=== PATIENT | male | born 1955 | race Caucasian/White ===

== ENCOUNTER → 2018-02-02 | Outpatient (CLI) | payer BC ==
[~2018-02-02] MED LIST: Acidophilus La100 GM; CALCIUM CITRAT1 EAC6 PO; CHOL10002 PO; FISH1000 PO; LUPRON DEPOT11.25 M2; MAGOXI400 PO; MELATONIN10 M5 PO; PANT40 PO; TURMERIC500 M1; UBID10; Vitamin E400 UNI4; [UNRECOGNIZED DRUG - OTHER] PO
== END | disposition home or self-care (01) ==
LOC: LAB SHORT 13:31 → PLD 13:31
DX: D23.5 Other benign neoplasm of skin of trunk (principal)
CPT/HCPCS: 88305

== ENCOUNTER → 2019-07-30 | Outpatient (CLI) | payer MEDICARE, OTHER | END | disposition home or self-care (01) | LOC: LAB 19:20 → LAB SHORT 19:20 | DX: L03.011 Cellulitis of right finger (principal) | CPT/HCPCS: 87070; 87075; 87077; 87147; 87186; 87205 ==

== ENCOUNTER → 2020-10-22 | Outpatient (CLI) | payer MEDICARE, OTHER ==
[2020-10-25 13:11] LABS: M-SPIKE, % Not Observed % (Not Observed); PROTEIN,TOTAL,URINE 5.6 mg/dL (Not Estab.)
== END | disposition home or self-care (01) ==
LOC: LAB SHORT 07:00 → PLD 07:00 → LAB FUT 10-15 12:25
PROVIDERS: Internal Medicine
DX: E87.8 Other disorders of electrolyte and fluid balance, not elsewhere classified (principal)
CPT/HCPCS: 81050; 84156; 84166

== ENCOUNTER → 2021-03-18 | Outpatient (CLI) | payer MEDICARE, OTHER | END | disposition home or self-care (01) | LOC: LAB 08:56 → LAB SHORT 08:56 | DX: D48.5 Neoplasm of uncertain behavior of skin (principal) | CPT/HCPCS: 88305 ==

== ENCOUNTER 2023-07-16 03:51 | Day surgery (SDC) | payer MEDICARE, OTHER | END 2023-07-16 22:39 | disposition home or self-care (01) | LOC: WOUND 03:51 | DX: S81.812A Laceration without foreign body, left lower leg, initial encounter (principal); X58.XXXA Exposure to other specified factors, initial encounter; I10 Essential (primary) hypertension; I87.2 Venous insufficiency (chronic) (peripheral); I73.9 Peripheral vascular disease, unspecified; Z88.8 Allergy status to other drugs, medicaments and biological substances | CPT/HCPCS: A9270 ==

== ENCOUNTER 2023-07-23 05:03 | Day surgery (SDC) | payer MEDICARE, OTHER | END 2023-07-23 22:47 | disposition home or self-care (01) | LOC: WOUND 05:03 | DX: S81.812A Laceration without foreign body, left lower leg, initial encounter (principal); W22.8XXA Striking against or struck by other objects, initial encounter; C61 Malignant neoplasm of prostate | CPT/HCPCS: G0463 ==

== ENCOUNTER 2023-07-30 02:19 | Day surgery (SDC) | payer MEDICARE, OTHER | END 2023-07-30 22:50 | disposition home or self-care (01) | LOC: WOUND 02:19 | DX: S81.802A Unspecified open wound, left lower leg, initial encounter (principal); W22.8XXA Striking against or struck by other objects, initial encounter; C61 Malignant neoplasm of prostate | CPT/HCPCS: G0463 ==

== ENCOUNTER 2023-08-13 02:24 | Day surgery (SDC) | payer MEDICARE, OTHER | END 2023-08-13 22:48 | disposition home or self-care (01) | LOC: WOUND 02:24 | DX: S81.802D Unspecified open wound, left lower leg, subsequent encounter (principal); W22.8XXD Striking against or struck by other objects, subsequent encounter | CPT/HCPCS: G0463 ==

== ENCOUNTER → 2024-09-17 | Outpatient (CLI) | payer MEDICARE, OTHER ==
[2024-09-17 14:06] LABS: Adenovirus F 40/41 Not Detected (NOT DETECT); Astrovirus Not Detected (NOT DETECT); Campylobacter Sp Not Detected (NOT DETECT); Cryptosporidium Not Detected (NOT DETECT); Cyclospora Cayetanensis Not Detected (NOT DETECT); E. Coli O157 Not Detected (NOT DETECT); Entamoeba Histolytica Not Detected (NOT DETECT); Enteroaggregative E. coli-EAEC Not Detected (NOT DETECT); Enteropathogenic E. coli-EPEC Not Detected (NOT DETECT); Enterotoxigenic E. coli-ETEC Not Detected (NOT DETECT); Giardia Lamblia Not Detected (NOT DETECT); Norovirus GI/GII Not Detected (NOT DETECT); Plesiomonas Shigelloides Not Detected (NOT DETECT); Rotavirus A Not Detected (NOT DETECT); Salmonella Sp Not Detected (NOT DETECT); Sapovirus Not Detected (NOT DETECT); Shiga Toxin-prod E. coli-STEC Not Detected (NOT DETECT); Shigella/Enteroin E. coli-EIEC Not Detected (NOT DETECT); Vibrio Cholerae Not Detected (NOT DETECT); Vibrio Sp Not Detected (NOT DETECT); Yersinia Enterocolitica Not Detected (NOT DETECT)
== END ==
LOC: LAB SHORT 09:00 → LAB 09:00
PROVIDERS: Physician Assistant
DX: R19.7 Diarrhea, unspecified (principal)
CPT/HCPCS: 87507